=== PATIENT | female | born 1965 | race Caucasian/White ===

== ENCOUNTER → 2024-01-15 14:52 | Outpatient (REF) | payer OTHER, SELFPAY | LOC: HWRAD 14:52 | PROVIDERS: ATTENDING PHYSICIAN Family Medicine | DX: J98.9 Respiratory disorder, unspecified (principal) | CPT/HCPCS: 71046 ==

== ENCOUNTER → 2024-02-05 12:33 | Outpatient (REF) | payer OTHER, SELFPAY | LOC: HWRAD 12:33 | PROVIDERS: ATTENDING PHYSICIAN Family Medicine | DX: J18.9 Pneumonia, unspecified organism (principal) | CPT/HCPCS: 71046 ==

== ENCOUNTER → 2024-02-10 14:35 | Outpatient (REF) | payer OTHER, SELFPAY | LOC: HWRAD 14:35 | PROVIDERS: ATTENDING PHYSICIAN Internal Medicine | DX: R93.89 Abnormal findings on diagnostic imaging of other specified body structures (principal); R91.1 Solitary pulmonary nodule | CPT/HCPCS: 71250 ==

== ENCOUNTER → 2024-02-28 07:50 | Outpatient (REF) | payer OTHER, SELFPAY | LOC: HWRAD 07:50 | PROVIDERS: ATTENDING PHYSICIAN Internal Medicine | DX: E04.1 Nontoxic single thyroid nodule (principal) | CPT/HCPCS: 76536 ==

== ENCOUNTER → 2024-03-12 09:12 | Outpatient (REF) | payer OTHER, SELFPAY | LOC: PET 09:12 | PROVIDERS: ATTENDING PHYSICIAN Nurse Practitioner Family | DX: R91.1 Solitary pulmonary nodule (principal) | CPT/HCPCS: 78815; A9552 ==

== ENCOUNTER → 2024-03-25 08:28 | Outpatient (REF) | payer OTHER, SELFPAY ==
[2024-03-25 08:40] VITALS: BP 150/65; BP_SYST 62
[2024-03-25 09:35] VITALS: BP 150/65
== END ==
LOC: RADI 08:28
PROVIDERS: ATTENDING PHYSICIAN Internal Medicine
DX: E04.1 Nontoxic single thyroid nodule (principal)
CPT/HCPCS: 88173; 10005

== ENCOUNTER → 2024-04-14 08:45 | Outpatient (REF) | payer OTHER, SELFPAY | LOC: HWRAD 08:45 | PROVIDERS: ATTENDING PHYSICIAN Internal Medicine Critical Care Medicine; FAMILY PHYSICIAN Internal Medicine | DX: R91.1 Solitary pulmonary nodule (principal) | CPT/HCPCS: 71250 ==

== ENCOUNTER 2024-05-11 06:12 | Day surgery (SDC) | payer OTHER, SELFPAY ==
[2024-04-13 11:43] LABS: INR 0.98; PT 13.3 Sec (11.4-14.6)
[2024-04-13 11:44] LABS: APTT 27.5 Sec (23.4-35.0)
[2024-04-13 12:44] VITALS: BMI 22.9
[2024-05-11] VITALS (8 sets, daily range): BP systolic 99–137; BP diastolic 55–87; BMI 22.9
== END 2024-05-11 10:45 | disposition home or self-care (01) ==
LOC: SDS 06:12
PROVIDERS: ATTENDING PHYSICIAN Internal Medicine Critical Care Medicine; FAMILY PHYSICIAN Internal Medicine
DX: R91.1 Solitary pulmonary nodule (principal); R59.0 Localized enlarged lymph nodes; D14.31 Benign neoplasm of right bronchus and lung; J42 Unspecified chronic bronchitis
CPT/HCPCS: 31629; 31628; 31623; 31624; 31627; 31654; 88172; 88173; 88305; 36415; 71045; 76000; 85610; 85730; 87015; 87070; 87102; 87116; 87205; 88112; 88333; 93005; C1887

== ENCOUNTER → 2024-08-10 12:15 | Outpatient (REF) | payer OTHER, SELFPAY | LOC: HWRAD 12:15 | PROVIDERS: FAMILY PHYSICIAN Internal Medicine | DX: R79.89 Other specified abnormal findings of blood chemistry (principal) | CPT/HCPCS: 76700 ==

== ENCOUNTER → 2024-08-28 08:03 | Outpatient (REF) | payer OTHER, SELFPAY | LOC: HWRAD 08:03 | PROVIDERS: ATTENDING PHYSICIAN Obstetrics & Gynecology; FAMILY PHYSICIAN Internal Medicine | DX: R10.2 Pelvic and perineal pain (principal) | CPT/HCPCS: 76830; 76856 ==

== ENCOUNTER → 2024-09-11 07:44 | Outpatient (REF) | payer OTHER, SELFPAY | LOC: HWRAD 07:44 | PROVIDERS: ATTENDING PHYSICIAN Internal Medicine | DX: R10.2 Pelvic and perineal pain (principal) | CPT/HCPCS: 76770 ==

== ENCOUNTER → 2025-04-16 09:09 | Outpatient (REF) | payer OTHER, SELFPAY | LOC: HWRAD 09:09 | PROVIDERS: ATTENDING PHYSICIAN Obstetrics & Gynecology; FAMILY PHYSICIAN Internal Medicine | DX: N95.0 Postmenopausal bleeding (principal) | CPT/HCPCS: 76830; 76856 ==